=== PATIENT | male | born 1975 | race Caucasian/White ===

== ENCOUNTER 2021-12-05 17:20 | Emergency (ER) | payer MEDICARE, MEDICAID ==
[~2021-12-05] VITALS: Ht 172.7 cm; Wt 118.2 kg
[2021-12-05] MEDS ORDERED: ondansetron/PF 4mg/2ml inj IV ONE (17:30)
[2021-12-05] MEDS ORDERED: normal saline 1000ML IV soln IVB ONE (17:30)
[2021-12-05 18:12] LABS: BASOPHILS % (AUTO) 0.3 % (0-1); EOSINOPHILS # (AUTO) 0.1 X10'3 (0-0.9); EOSINOPHILS % (AUTO) 0.9 % (0-6); HEMATOCRIT 39.3 % (42.0-52.0); HEMOGLOBIN 13.3 g/dl (14.0-17.9); LYMPHOCYTES % (AUTO) 23.6 % (21-51); MEAN CORPUSCULAR HGB CONC 33.9 g/dL (33.0-36.5); MEAN CORPUSCULAR VOLUME 94.3 FL (78-98); MEAN PLATELET VOLUME 7.2 FL (7.4-10.4); MONOCYTES # (AUTO) 0.6 X10'3 (0-0.9); MONOCYTES % (AUTO) 7.5 % (2-12); NEUTROPHILS # (AUTO) 5.6 X10'3 (1.8-7.7); NEUTROPHILS % (AUTO) 67.7 % (42-75); PLATELET COUNT 191 X10'3 (140-440); RED BLOOD COUNT 4.17 X10'6 (4.70-6.10); RED CELL DISTRIBUTION WIDTH 14.2 % (11.5-14.5); WHITE BLOOD COUNT 8.3 X10'3 (4.5-11.0)
[2021-12-05 18:33] LABS: ALANINE AMINOTRANSFERASE 30 U/L (12-78); ALBUMIN 3.3 G/DL (3.4-5.0); ALBUMIN/GLOBULIN RATIO 1.1 (1.1-1.5); ALKALINE PHOSPHATASE 47 IU/L (46-116); ANION GAP 7 (8-16); ASPARTATE AMINO TRANSFERASE 20 U/L (10-37); BILIRUBIN,TOTAL 0.2 MG/DL (0.1-1.0); BLOOD UREA NITROGEN 13 MG/DL (7-18); BUN/CREATININE RATIO 14.8 (5.4-32.0); CALCIUM 7.9 MG/DL (8.5-10.1); CHLORIDE 104 MMOL/L (99-107); CREATININE 0.88 MG/DL (0.60-1.10); GLUCOSE 110 MG/DL (70-104); POTASSIUM 3.7 MMOL/L (3.5-5.1); SODIUM 144 MMOL/L (135-145); TOTAL PROTEIN 6.2 G/DL (6.4-8.2); eGFR > 90 ML/MIN
[2021-12-05 19:24] LABS: CLARITY,URINE CLEAR (Clear); COLOR,URINE YELLOW (Yellow); GLUCOSE, URINE NEGATIVE (Neg); KETONES,URINE NEGATIVE (Neg); LEUKOCYTE ESTERASE ,URINE NEGATIVE (Neg); NITRITES, URINE NEGATIVE (Neg); OCCULT BLOOD,URINE NEGATIVE (Neg); PH,URINE 5.5 (4.8-8.0); PROTEIN,URINE NEGATIVE (Neg); UROBILINOGEN,URINE 0.2 E.U/dL (0.2-1.0)
[2021-12-05 19:28] LABS: UA COLLECTION TYPE CLN CATCH MIDSTREAM
[2021-12-05 19:54] VITALS: BP 119/59
== END 2021-12-05 19:56 | disposition home or self-care (01) ==
LOC: EDBD 17:20 → ER 17:20
DX: T40.411A Poisoning by fentanyl or fentanyl analogs, accidental (unintentional), initial encounter (principal); F11.20 Opioid dependence, uncomplicated; G89.29 Other chronic pain; M54.50 Low back pain, unspecified; Y92.89 Other specified places as the place of occurrence of the external cause
CPT/HCPCS: 36415; 71045; 80053; 81003; 85025; 96374; 99284; J2405; J7030

== ENCOUNTER 2023-10-18 03:26 | Emergency (ER) | payer MEDICARE, MEDICAID ==
[~2023-10-18] VITALS: Ht 177.8 cm; Wt 75.0 kg
[~2023-10-18 03:26] MED LIST: HYDR-3972 PO; ONDA4TAB12 PO; SULF1TAB49 PO
[2023-10-18 03:54] VITALS: BP 145/93; PULSE 92; RESP 14; TEMP 97.9; O2SAT 96
== END 2023-10-18 05:57 | disposition home or self-care (01) ==
LOC: ER 03:26
DX: Z00.00 Encounter for general adult medical examination without abnormal findings (principal); G89.29 Other chronic pain; M54.9 Dorsalgia, unspecified; F17.200 Nicotine dependence, unspecified, uncomplicated; Z88.5 Allergy status to narcotic agent; Z79.2 Long term (current) use of antibiotics; Z79.899 Other long term (current) drug therapy
CPT/HCPCS: 99283

== ENCOUNTER 2024-01-25 23:40 | Emergency (ER) | payer MEDICARE, MEDICAID ==
[~2024-01-25] VITALS: Ht 170.2 cm; Wt 76.4 kg
[~2024-01-25 23:40] MED LIST changes: +ONDA-243 PO; -ONDA4TAB12 PO
[2024-01-25 23:44] VITALS: BP 132/67; PULSE 100; RESP 18; O2SAT 97
[2024-01-26] MEDS ORDERED: CEPH-585 PO (00:30)
[2024-01-26] MEDS: cephalexin 250mg capsule PO ONE (00:49)
[2024-01-26 00:50] VITALS: TEMP 98.4
== END 2024-01-26 00:58 | disposition home or self-care (01) ==
LOC: ER 23:42
DX: S41.111D Laceration without foreign body of right upper arm, subsequent encounter (principal); G89.29 Other chronic pain; M54.9 Dorsalgia, unspecified; F41.9 Anxiety disorder, unspecified; F32.A Depression, unspecified; Z98.890 Other specified postprocedural states; Z88.5 Allergy status to narcotic agent; Z79.2 Long term (current) use of antibiotics; X58.XXXD Exposure to other specified factors, subsequent encounter
CPT/HCPCS: 99283; A6223; A6258; A6402; A6446; A6449

== ENCOUNTER 2024-01-29 08:47 | Emergency (ER) | payer MEDICARE, MEDICAID ==
[~2024-01-29] VITALS: Ht 170.2 cm; Wt 99.1 kg
[~2024-01-29 08:47] MED LIST changes: +CEPH-585 PO
[2024-01-29 11:18] VITALS: BP 139/79; PULSE 98; RESP 2; TEMP 99.1; O2SAT 100
== END 2024-01-29 10:20 | disposition home or self-care (01) ==
LOC: ER 08:48
DX: S41.111D Laceration without foreign body of right upper arm, subsequent encounter (principal); G89.29 Other chronic pain; F41.9 Anxiety disorder, unspecified; F32.A Depression, unspecified; Z88.5 Allergy status to narcotic agent; Z79.2 Long term (current) use of antibiotics; W19.XXXD Unspecified fall, subsequent encounter
CPT/HCPCS: 99282; A6253; A6258; A6446